=== PATIENT | male | born 1965 | race Caucasian/White ===

== ENCOUNTER 2025-04-21 12:24 | Emergency (ER) | payer MEDICAID ==
[~2025-04-21] VITALS: Ht 172.7 cm; Wt 68.0 kg
[2025-04-21 12:35] VITALS: BP 131/78; TEMP 98.3; O2SAT 96
[2025-04-21] MEDS ORDERED: SILV20CR13 TP (13:03)
== END 2025-04-21 13:10 | disposition home or self-care (01) ==
LOC: ER 12:30
DX: T22.212A Burn of second degree of left forearm, initial encounter (principal); T31.0 Burns involving less than 10% of body surface; X30.XXXA Exposure to excessive natural heat, initial encounter; Y93.89 Activity, other specified; Y92.89 Other specified places as the place of occurrence of the external cause; Y99.8 Other external cause status